=== PATIENT | male | born 1930 | race African-American/Black ===

== ENCOUNTER 2018-12-14 19:23 | Emergency (ER) | payer MEDICARE ==
[~2018-12-14] VITALS: Ht 162.6 cm; Wt 75.0 kg
[2018-12-14 20:08] LABS: GLUCOSE,POINT OF CARE 96 MG/DL (70-110)
[2018-12-14] MEDS ORDERED: LIDOCAINE 1% 10 ML VIAL INJ ONE (20:15)
[2018-12-14] MEDS ORDERED: PERTUSS(ACELL),DIPH,TET VAC/PF 0.5 ML VIAL IM ONE (20:15)
[2018-12-14] MEDS ORDERED: BACITRACIN 0.9 GM PACKET OINTMENT TP ONE (20:30)
[2018-12-14 22:28] VITALS: BP 163/88
== END 2018-12-14 22:30 | disposition home or self-care (01) ==
LOC: EMS 19:24
DX: S81.812A Laceration without foreign body, left lower leg, initial encounter (principal); E11.9 Type 2 diabetes mellitus without complications; W45.8XXA Other foreign body or object entering through skin, initial encounter; Y93.89 Activity, other specified; Y92.89 Other specified places as the place of occurrence of the external cause; Y99.8 Other external cause status
CPT/HCPCS: 12004; 82962; 90471; 90715; 99283; J3490